=== PATIENT | female | born 1955 | race Caucasian/White ===

== ENCOUNTER 2017-07-22 12:31 | Day surgery (SDC) | payer OTHER ==
[~2017-07-22] VITALS: Ht 157.5 cm; Wt 95.9 kg
[~2017-07-22 12:31] MED LIST: ALBU18HF IH; ALBU18HF INH; BECL8.7A7 INH; BUDE10.22 IH; CETI10TA18 PO; FLUT50DI INH; HYDR25TA11 PO; Hydrocodone Bit/Acetaminophen PO; LISI-170 PO; LOVA40TA2 PO; MECL25TA4 PO; MELO7.5T31 PO; METH500T7 PO; METH750T2 PO; METH750T87 PO; SALM50DI INH; SODI22SP NS
[2017-07-22 13:12] VITALS: BP 176/75
[2017-07-22] MEDS ORDERED: SODIUM CHLORIDE 0.9% 1,000 ML IV SCH (13:14)
[2017-07-22 13:42] LABS: HEMOGLOBIN 13.6 g/dL (11.7-16.4); WHITE BLOOD COUNT 8.4 x10^3/uL (3.4-10)
[2017-07-22 13:49] LABS: BLOOD UREA NITROGEN 13 mg/dL (7-18)
[2017-07-22] MEDS ORDERED: PROTAMINE SULFATE 10 MG/ML, 25ML ONE (14:15)
[2017-07-22] MEDS ORDERED: MIDAZOLAM 1 MG/ML, 5ML ONE (14:15)
[2017-07-22] MEDS ORDERED: HEPARIN 1,000 UNITS/ML, 10ML ONE (14:16)
[2017-07-22] MEDS ORDERED: NALOXONE 1 MG/ML, 2ML ONE (14:16)
[2017-07-22] MEDS ORDERED: FLUMAZENIL 0.1 MG/1 ML, 5ML ONE (14:16)
[2017-07-22] MEDS ORDERED: FENTANYL PF 100 MCG/2ML ONE (14:16)
[2017-07-22] MEDS ORDERED: LIDOCAINE 2%, 20ML ONE (14:20)
[2017-07-22] MEDS ORDERED: VISIPAQUE 270 MG/ML, 150ML BOTTLE ONE (15:14)
== END 2017-07-22 18:47 | disposition home or self-care (01) ==
LOC: OUT 12:31
PROVIDERS: ATTEND Surgery Vascular Surgery
DX: I73.9 Peripheral vascular disease, unspecified (principal); F41.9 Anxiety disorder, unspecified; J44.9 Chronic obstructive pulmonary disease, unspecified; E78.5 Hyperlipidemia, unspecified; I10 Essential (primary) hypertension; Z87.891 Personal history of nicotine dependence; Z85.42 Personal history of malignant neoplasm of other parts of uterus; Z90.710 Acquired absence of both cervix and uterus; Z98.890 Other specified postprocedural states; Z83.3 Family history of diabetes mellitus; Z82.49 Family history of ischemic heart disease and other diseases of the circulatory system; Z80.1 Family history of malignant neoplasm of trachea, bronchus and lung; Z72.89 Other problems related to lifestyle
CPT/HCPCS: 36200; 36415; 75630; 76937; 80048; 85025; 99156; 99157; C1751; C1769; C1894; J2250; J3010; J3490; J7030; Q9966; J1644; J2720; J2310

== ENCOUNTER 2018-12-20 11:33 | Emergency (ER) | payer OTHER ==
[~2018-12-20] VITALS: Ht 157.5 cm; Wt 104.5 kg
[2018-12-20] MEDS ORDERED: HYDROcodone/APAP 5/325 TABLET ONE (14:44)
[2018-12-20] MEDS ORDERED: HYDROcodone/APAP 5/325 TABLET PO ONE (15:00)
[2018-12-20 15:05] VITALS: BP 158/77
== END 2018-12-20 15:07 | disposition home or self-care (01) ==
LOC: ED 13:34
DX: S92.201A Fracture of unspecified tarsal bone(s) of right foot, initial encounter for closed fracture (principal); S80.01XA Contusion of right knee, initial encounter; S70.01XA Contusion of right hip, initial encounter; S00.03XA Contusion of scalp, initial encounter; I10 Essential (primary) hypertension; W01.0XXA Fall on same level from slipping, tripping and stumbling without subsequent striking against object, initial encounter; Y93.89 Activity, other specified; Y92.009 Unspecified place in unspecified non-institutional (private) residence as the place of occurrence of the external cause; Y99.8 Other external cause status
CPT/HCPCS: 29515; 70450; 99284